=== PATIENT | female | born 1995 | race Caucasian/White ===

== ENCOUNTER → 2020-09-08 | Outpatient (CLI) | payer MEDICAID | END | disposition home or self-care (01) | LOC: OB 15:52 | PROVIDERS: ATTEND Specialist | DX: Z34.92 Encounter for supervision of normal pregnancy, unspecified, second trimester (principal); Z3A.20 20 weeks gestation of pregnancy | CPT/HCPCS: 76805 ==

== ENCOUNTER 2020-12-21 14:33 | Observation (INO) | payer MEDICAID ==
[2020-12-21] MEDS ORDERED: TERBUTALINE SULFATE 1 MG/ML 1ML VIAL SC ONE (16:00)
[2020-12-21 16:09] LABS: Basophils # (auto) 0.1 10 ^3/uL (0-0.2); Basophils % (auto) 0.6 % (0.0-2.0); Eosinophils # (auto) 0.1 10 ^3/uL (0-0.8); Eosinophils % (auto) 0.5 % (0.0-7.0); Hematocrit 35.6 % (36.0-46.0); Hemoglobin 12.7 g/dL (12.2-16.2); Lymphocytes # (auto) 1.5 10 ^3/uL (0.4-5.4); Lymphocytes % (auto) 14.7 % (10.0-50.0); Mean Corpuscular Hemoglobin 31.9 pg (28.0-32.0); Mean Corpuscular Hgb Conc. 35.6 g/dL (32.0-36.0); Mean Corpuscular Volume 89.6 fL (80.0-100.0); Monocytes # (auto) 0.3 10 ^3/uL (0-1.3); Monocytes % (auto) 3.1 % (0.0-12.0); Neutrophils # (auto) 8.3 10 ^3/uL (1.6-8.6); Neutrophils % (auto) 81.1 % (37.0-80.0); Nucleated Red Blood Cells % 0.1 %; Platelet Count (auto) 199 10^3/uL (140-450); Red Blood Cells 3.97 10^6/uL (4.0-5.20); Red Cell Distribution Width 12.5 % (11.8-14.3); White Blood Cell 10.2 10^3/uL (4.4-10.8)
[2020-12-21 16:29] LABS: Albumin 2.7 g/dL (3.4-5.0); Calcium 8.8 mg/dL (8.5-10.1); Potassium 3.6 mmol/L (3.5-5.1)
[2020-12-21 16:34] LABS: BUN/Creatinine Ratio 12.7; Bilirubin, Total 0.2 mg/dL (0.2-1.0); Total Protein 6.8 g/dL (6.4-8.2); Uric Acid 5.8 mg/dL (2.6-6.0)
[2020-12-21 16:53] LABS: INR 0.93 (0.9-1.15); Partial Thromboplastin Time 23.6 sec (23.0-31.2)
== END 2020-12-21 15:08 | disposition home or self-care (01) ==
LOC: LDRP 14:33
PROVIDERS: ADMIT Specialist; ATTEND Specialist
DX: O13.3 Gestational [pregnancy-induced] hypertension without significant proteinuria, third trimester (principal); Z3A.35 35 weeks gestation of pregnancy
CPT/HCPCS: 36415; 76818; 80053; 84550; 85025; 85610; 85730; G0378; J3105; 59025; 81002; 94760; 96372

== ENCOUNTER 2020-12-23 09:45 | Observation (INO) | payer MEDICAID ==
[2020-12-23 12:52] LABS: Protein, Urine 20.4 mg/dL (0.0-11.9)
[2020-12-23 12:54] LABS: 24 Hr. Total Protein, Urine 326.4 mg/24 Hr (<149.1)
[2020-12-23 12:57] LABS: Creatinine Clearance, Urine 159.37 mL/min (75-115); Protein, Urine 21.2 mg/dL (0.0-11.9)
[2020-12-29] MEDS ORDERED: PREN-96 PO (18:35)
== END 2020-12-23 13:55 | disposition home or self-care (01) ==
LOC: LDRP 09:45
PROVIDERS: ADMIT Specialist; ATTEND Specialist
DX: O13.3 Gestational [pregnancy-induced] hypertension without significant proteinuria, third trimester (principal); Z3A.36 36 weeks gestation of pregnancy
CPT/HCPCS: 82570; 82575; 84156; G0378; 59025; 81002

== ENCOUNTER 2020-12-28 10:08 | Observation (INO) | payer MEDICAID ==
[2020-12-28 10:56] LABS: Basophils # (auto) 0.1 10 ^3/uL (0-0.2); Eosinophils # (auto) 0.1 10 ^3/uL (0-0.8); Eosinophils % (auto) 0.7 % (0.0-7.0); Hematocrit 37.9 % (36.0-46.0); Lymphocytes # (auto) 1.8 10 ^3/uL (0.4-5.4); Lymphocytes % (auto) 15.5 % (10.0-50.0); Mean Corpuscular Hemoglobin 31.1 pg (28.0-32.0); Mean Corpuscular Hgb Conc. 34.2 g/dL (32.0-36.0); Monocytes # (auto) 0.4 10 ^3/uL (0-1.3); Monocytes % (auto) 3.2 % (0.0-12.0); Neutrophils % (auto) 79.6 % (37.0-80.0); Platelet Count (auto) 212 10^3/uL (140-450); Red Blood Cells 4.17 10^6/uL (4.0-5.20); Red Cell Distribution Width 12.9 % (11.8-14.3); White Blood Cell 11.4 10^3/uL (4.4-10.8)
[2020-12-28 11:09] LABS: Urine Bacteria FEW /hpf (None Seen); Urine Blood Negative /uL (Negative); Urine Specific Gravity 1.003 (1.001-1.035); Urine WBC 16 /hpf (0 - 5)
[2020-12-28 11:15] LABS: Amphetamine Screen, Urine NEGATIVE (NEGATIVE); Barbiturate Scree,Urine NEGATIVE (NEGATIVE); Benzodiazephine Screen, Urine NEGATIVE (NEGATIVE); Cannabinoid Screen, Urine POSITIVE (NEGATIVE)
[2020-12-28 11:16] LABS: Albumin 2.8 g/dL (3.4-5.0); Calcium 9.3 mg/dL (8.5-10.1)
[2020-12-28 11:19] LABS: INR 0.9 (0.9-1.15); Partial Thromboplastin Time 23.8 sec (23.0-31.2)
[2020-12-28 11:20] LABS: Alcohol, Urine < 3.0 mg/dL (0-10); Cocaine Screen, Urine NEGATIVE (NEGATIVE); Opiate Scree,Urine NEGATIVE (NEGATIVE); Phencyclidine Screen, Urine NEGATIVE (NEGATIVE)
[2020-12-28 11:22] LABS: BUN/Creatinine Ratio 15.7; Bilirubin, Total 0.2 mg/dL (0.2-1.0)
[2020-12-29] MEDS ORDERED: PREN-96 PO (18:35)
== END 2020-12-28 12:25 | disposition home or self-care (01) ==
LOC: LDRP 10:08
PROVIDERS: ADMIT Obstetrics & Gynecology; ATTEND Obstetrics & Gynecology
DX: O26.893 Other specified pregnancy related conditions, third trimester (principal); R10.30 Lower abdominal pain, unspecified; Z3A.36 36 weeks gestation of pregnancy
CPT/HCPCS: 36415; 59025; 76818; 80053; 80307; 81001; 81002; 84550; 85025; 85610; 85730; G0378

== ENCOUNTER 2021-01-10 14:10 | Emergency (ER) | payer MEDICAID ==
[~2021-01-10] VITALS: Ht 162.6 cm; Wt 74.8 kg
[~2021-01-10 14:10] MED LIST: PREN-96 PO
[2021-01-10 14:25] VITALS: BP 143/87
[2021-01-10] MEDS ORDERED: HYDROcodone-ACET 5/325MG TAB PO ONE (17:15)
== END 2021-01-10 17:55 | disposition home or self-care (01) ==
LOC: ER 14:10
DX: S82.62XA Displaced fracture of lateral malleolus of left fibula, initial encounter for closed fracture (principal); E11.9 Type 2 diabetes mellitus without complications; I10 Essential (primary) hypertension; Z88.2 Allergy status to sulfonamides; X50.1XXA Overexertion from prolonged static or awkward postures, initial encounter; Y93.89 Activity, other specified; Y92.89 Other specified places as the place of occurrence of the external cause; Y99.8 Other external cause status
CPT/HCPCS: 29515; 73610

== ENCOUNTER 2021-03-23 12:43 | Emergency (ER) | payer MEDICAID ==
[~2021-03-23] VITALS: Ht 154.9 cm; Wt 63.5 kg
[2021-03-23 13:27] VITALS: BP 143/65
[2021-03-23] MEDS ORDERED: HYDROcodone-ACET 5/325MG TAB PO ONE (13:45)
== END 2021-03-23 15:47 | disposition home or self-care (01) ==
LOC: ER 12:43
DX: S93.402A Sprain of unspecified ligament of left ankle, initial encounter (principal); E11.9 Type 2 diabetes mellitus without complications; I10 Essential (primary) hypertension; W01.0XXA Fall on same level from slipping, tripping and stumbling without subsequent striking against object, initial encounter; Y93.89 Activity, other specified; Y92.89 Other specified places as the place of occurrence of the external cause; Y99.8 Other external cause status
CPT/HCPCS: 73610; 73630